=== PATIENT | male | born 1990 | race Caucasian/White ===

== ENCOUNTER 2021-02-02 06:59 | Emergency (ER) | payer BC, OTHER ==
[~2021-02-02] VITALS: Ht 185.4 cm; Wt 106.5 kg
[~2021-02-02 06:59] MED LIST: OMEP20TA23 PO
[2021-02-02 07:28] VITALS: BP 151/84
--- NOTE | 2021-02-02 07:34 | NUR ---
Dr. Abarca saw patient in triage.
[2021-02-03] MEDS ORDERED: ONDA4TAB6 PO (13:58)
[2021-02-03] MEDS ORDERED: HYDR-3965 PO (13:58)
== END 2021-02-02 09:06 | disposition home or self-care (01) ==
LOC: ER 06:59
DX: S60.811A Abrasion of right wrist, initial encounter (principal); M25.521 Pain in right elbow; M25.531 Pain in right wrist; F41.9 Anxiety disorder, unspecified; Z79.899 Other long term (current) drug therapy; V19.9XXA Pedal cyclist (driver) (passenger) injured in unspecified traffic accident, initial encounter; Y93.89 Activity, other specified; Y92.89 Other specified places as the place of occurrence of the external cause; Y99.8 Other external cause status
CPT/HCPCS: 29125; 73080; 73110; 99284

== ENCOUNTER 2021-02-03 12:14 | Emergency (ER) | payer OTHER ==
[~2021-02-03] VITALS: Ht 182.9 cm; Wt 107.8 kg
[2021-02-03 12:16] VITALS: BP 144/81
[2021-02-03] MEDS ORDERED: ONDA4TAB6 PO (13:58)
[2021-02-03] MEDS ORDERED: HYDR-3965 PO (13:58)
== END 2021-02-03 14:26 | disposition home or self-care (01) ==
LOC: ER 12:15
DX: S52.181A Other fracture of upper end of right radius, initial encounter for closed fracture (principal); M25.531 Pain in right wrist; M25.521 Pain in right elbow; F41.9 Anxiety disorder, unspecified; Z79.899 Other long term (current) drug therapy; V19.9XXA Pedal cyclist (driver) (passenger) injured in unspecified traffic accident, initial encounter; Y93.89 Activity, other specified; Y92.89 Other specified places as the place of occurrence of the external cause; Y99.8 Other external cause status
CPT/HCPCS: 29105; 99283